=== PATIENT | female | born 1960 | race Caucasian/White ===

== ENCOUNTER 2020-10-11 09:22 | Inpatient (IN) | payer OTHER ==
[~2020-10-11] VITALS: Ht 182.9 cm; Wt 110.9 kg
--- NOTE | 2020-10-11 09:45 | NUR ---
ASSUMED CARE OF PT. SHE IS HERE W/ C/O SOB AND SOME CHEST PRESSURE THAT STARTED LAST NIGHT. PT PLACED IN GOWN, ON MONITOR (BP, SPO2, AND CARDIAC). PT IS IN AFIB. MD BEDSIDE WITH PT
--- NOTE | 2020-10-11 10:15 | NUR ---
PIV STARTED BY TASK RN. RADIOLOGY BEDSIDE NOW.
[2020-10-11] MEDS ORDERED: PROPOFOL 10 MG/ML, 20ML ONE (10:20)
[2020-10-11 10:23] LABS: BASOPHILS % (AUTO) 1 % (0-1); EOSINOPHILS % (AUTO) 3 % (1-7); LYMPHOCYTES % (AUTO) 20 % (22-44); MEAN CORPUSCULAR HEMOGLOBIN 31.4 pg (27.0-34.8); MEAN CORPUSCULAR HGB CONC 34.6 g/dL (32.4-35.8); MEAN PLATELET VOLUME 9.9 fL (7.4-10.4); MONOCYTES % (AUTO) 9 % (2-9); NEUTROPHILS % (AUTO) 67 % (42-75); PLATELET COUNT 229 x10^3/uL (130-400); RED BLOOD COUNT 4.43 x10^6/uL (3.82-5.3); RED CELL DISTRIBUTION WIDTH 13.9 % (9.6-15.2)
[2020-10-11] MEDS ORDERED: SODIUM CHLORIDE 0.9% 1,000ML IVBOLUS ONE (10:30)
[2020-10-11] MEDS ORDERED: SODIUM CHLORIDE FLUSH 10ML SYR IVF ONE (10:30)
[2020-10-11] MEDS ORDERED: PROPOFOL 10 MG/ML, 20ML IVPush ONE (10:30)
[2020-10-11 10:32] LABS: ALANINE AMINOTRANSFERASE 33 U/L (12-78); ALBUMIN 3.5 g/dL (3.4-5.0); ANION GAP 5 mmol/L (5-15); CHLORIDE 109 mmol/L (98-107)
--- NOTE | 2020-10-11 10:35 | NUR ---
PT CONSENT SIGNED FOR CARDIOVERSION, AND NEEDED EQUIPMENT BEDSIDE (END TIDAL, IVF, MEDS, CRASH CART).
[2020-10-11 10:36] LABS: ALKALINE PHOSPHATASE 99 U/L (45-117); TOTAL PROTEIN 7.8 g/dL (6.4-8.2); TROPONIN I < 0.015 ng/mL (0.000-0.045)
--- NOTE | 2020-10-11 10:50 | NUR ---
PT HAS BEEN CARDIOVERTED INTO NS. REPEAT EKG COMPLETED AND PROVIDED TO MD. PT SON BEDSIDE, SIDERAIL UP X2. TASK RN BEDSIDE WITH PATIENT AND IS ADMINSTERING .5 MG OF DIG ORDERED BY .
[2020-10-11] MEDS ORDERED: DIGOXIN 0.25 MG/ML, 2ML ONE (10:51)
[2020-10-11] MEDS ORDERED: DILTIAZEM 5 MG/ML, 5ML ONE (10:53)
--- NOTE | 2020-10-11 11:05 | NUR ---
10 MG DILTIAZEM IV GIVEN PER DR MENENDEZ. DR HURLEY IN ROOM FOR EVAL. PT A&OX4 GCS 15, STS FEELS BETTER. SR 80S. BP WNL.
--- NOTE | 2020-10-11 11:25 | NUR ---
PT UP TO RESTROOM AND BACK W/O INCIDENT, SBA D/T MEDICATION GIVEN. PT HAD STEADY GAIT. VSS, NADN. CALL LIGHT W/IN REACH.
[2020-10-11] MEDS ORDERED: DIGOXIN 0.25 MG/ML, 2ML IVPush ONE (11:30)
[2020-10-11] MEDS ORDERED: morphine SULFATE 10 MG/ML, 1ML IVPush PRN (11:30)
[2020-10-11] MEDS ORDERED: DILTIAZEM 5 MG/ML, 5ML IVPush ONE (11:30)
[2020-10-11] MEDS ORDERED: MELATONIN 5 MG TABLET PO PRN (11:30)
[2020-10-11] MEDS ORDERED: ONDANSETRON 2MG/ML, 2ML IVPush PRN (11:30)
[2020-10-11] MEDS ORDERED: ONDANSETRON ODT 4 MG PO PRN (11:30)
[2020-10-11] MEDS ORDERED: DILTIAZEM 5 MG/ML, 5ML IVPush PRN (11:30)
[2020-10-11] MEDS ORDERED: ENALAPRILAT 1.25 MG/ML, 2ML IVPush PRN (11:30)
[2020-10-11] MEDS ORDERED: APIXABAN 5 MG TABLET ONE (12:09)
[2020-10-11] MEDS: APIXABAN 5 MG TABLET PO SCH ×2 (12:13→20:33)
--- NOTE | 2020-10-11 12:15 | NUR ---
PT MEDICATED PER MAR. UPDATED ON ROOM STATUS. NADN, CALL LIGHT W/IN REACH.
[2020-10-11 13:38] VITALS: BP 120/83
[2020-10-11] MEDS: ACETAMINOPHEN 325 MG TABLET PO PRN (15:12)
[2020-10-11 15:30] VITALS: BP 129/90
[2020-10-11] MEDS: SOTALOL 80MG TABLET PO SCH (17:56)
[2020-10-11 20:00] VITALS: BP 124/84
[2020-10-12 03:00] VITALS: BP 128/80
[2020-10-12 05:19] LABS: BASOPHILS % (AUTO) 0 % (0-1); EOSINOPHILS % (AUTO) 4 % (1-7); LYMPHOCYTES % (AUTO) 22 % (22-44); MEAN CORPUSCULAR HEMOGLOBIN 30.9 pg (27.0-34.8); MEAN PLATELET VOLUME 10.5 fL (7.4-10.4); MONOCYTES % (AUTO) 8 % (2-9); NEUTROPHILS % (AUTO) 67 % (42-75); PLATELET COUNT 207 x10^3/uL (130-400); RED BLOOD COUNT 4.21 x10^6/uL (3.82-5.3); RED CELL DISTRIBUTION WIDTH 13.6 % (9.6-15.2)
[2020-10-12 05:23] LABS: CHLORIDE 108 mmol/L (98-107)
[2020-10-12 05:30] LABS: ANION GAP 4 mmol/L (5-15); CALCIUM 8.9 mg/dL (8.5-10.1); CREATININE 0.65 mg/dL (0.55-1.02)
[2020-10-12] MEDS: SOTALOL 80MG TABLET PO SCH ×2 (06:09→21:06)
[2020-10-12 06:51] VITALS: BP 124/85
[2020-10-12] MEDS: APIXABAN 5 MG TABLET PO SCH ×2 (08:58→21:05)
[2020-10-12] MEDS: ACETAMINOPHEN 325 MG TABLET PO PRN (10:13)
[2020-10-12 12:13] VITALS: BP 111/72
[2020-10-12] MEDS ORDERED: BUTALB/APAP/CAFFEINE 50MG/325MG/40MG PO PRN (16:30)
[2020-10-12 19:01] VITALS: BP 131/88
[2020-10-12] MEDS ORDERED: METOCLOPRAMIDE 5 MG/ML, 2ML IVPush PRN (19:30)
[2020-10-13 00:52] VITALS: BP 108/66
[2020-10-13] MEDS: SOTALOL 80MG TABLET PO SCH (06:06)
[2020-10-13 06:44] VITALS: BP 94/66
[2020-10-13] MEDS: APIXABAN 5 MG TABLET PO SCH (08:59)
[2020-10-13] MEDS: ACETAMINOPHEN 325 MG TABLET PO PRN (09:00)
[2020-10-13] MEDS ORDERED: SOTA80TA18 PO (09:52)
[2020-10-13] MEDS ORDERED: APIX5TAB PO (09:52)
== END 2020-10-13 12:59 | disposition home or self-care (01) | DRG 309 ==
LOC: SUATTDRO 11:20 → ED 11:48 → EDIP 12:04 → 5SO 12:56
PROVIDERS: ADMIT Hospitalist; ATTEND Hospitalist
PROC: 5A2204Z Restoration of Cardiac Rhythm, Single (ICD-10-PCS; principal; 2020-10-11)
DX: I48.0 Paroxysmal atrial fibrillation (principal); E87.1 Hypo-osmolality and hyponatremia; D68.69 Other thrombophilia; E66.9 Obesity, unspecified; I34.0 Nonrheumatic mitral (valve) insufficiency; Z86.16 Personal history of COVID-19; Z87.891 Personal history of nicotine dependence; Z90.710 Acquired absence of both cervix and uterus; R55 Syncope and collapse; Z90.49 Acquired absence of other specified parts of digestive tract; Z89.421 Acquired absence of other right toe(s); Z68.33 Body mass index [BMI] 33.0-33.9, adult
CPT/HCPCS: 36415; 71045; 80048; 80053; 83605; 84484; 85025; 92960; 93005; 93306; 93356; 96374; 99152; G0378; J2405; J1160; J2270; J2765; J7030